=== PATIENT | female | born 1945 | race Caucasian/White ===

== ENCOUNTER 2016-11-04 09:22 | Outpatient (RCR) | payer MEDICARE, OTHER ==
[2015-09-18 06:26] VITALS: BP 117/59
[~2016-11-04 09:22] MED LIST: ACIDOPHILUS PO; ALLEGRA ALLERG180 MG PO; AMBIEN5 M1 PO; CLARITIN10 M1 PO; COUMADIN5 MG PO; CRESTOR 10MG10 MG PO; FUROSEMIDE PO; GABAPENTIN TAB600 MG PO; GLUCOPHAGE XR500 M2 PO; GOOD NEIGHBOR P20 MG PO; HYOSCYAMINE0.125 M7 PO; INSULIN 70/3100 U/ML IJ; IPRATROPIUM BROM3 M1 IH; LEVEMIR SQ; LEVOTHYROXINE0.15 MG PO; LISINOPRIL5 MG PO; LYRICA 50MG CAP50 MG PO; METOCLOPRAMIDE10 M2 PO; MOMETASONE0.05 MG/Ac NS; NOVOLOG 100U100 U/ML SQ; OXYCODONE PO; PANTOPRAZOLE SO40 MG PO; PAXIL20 M1 PO; Patient's Own Medication PO; RT ADVAIR HFA 2312 G IH; RT ALBUTER2.5 MG/0.5 IH; Remove Patch TD; SINEQUAN 1010 MG/CAP PO; SINGULAIR; SLOW-MAG 6464 MG/TAB PO; TRIAMCINOLONE A15 GM TP
== END 2016-11-09 10:21 ==
LOC: OPPGERO 09:22
DX: F32.1 Major depressive disorder, single episode, moderate (principal); F41.1 Generalized anxiety disorder

== ENCOUNTER 2016-11-10 07:26 | Outpatient (RCR) | payer MEDICARE, OTHER ==
[2015-09-18 06:26] VITALS: BP 117/59
== END 2016-12-10 15:02 ==
LOC: OPPGERO 07:26
DX: F32.1 Major depressive disorder, single episode, moderate (principal); F41.1 Generalized anxiety disorder

== ENCOUNTER 2016-12-11 09:00 | Outpatient (RCR) | payer MEDICARE, OTHER ==
[2015-09-18 06:26] VITALS: BP 117/59
== END 2017-01-07 15:27 ==
LOC: OPPGERO 09:00
DX: F32.1 Major depressive disorder, single episode, moderate (principal); F41.1 Generalized anxiety disorder

== ENCOUNTER 2017-01-10 08:12 | Outpatient (RCR) | payer MEDICARE, OTHER ==
[2015-09-18 06:26] VITALS: BP 117/59
== END 2017-02-09 16:48 ==
LOC: OPPGERO 08:12
DX: F32.1 Major depressive disorder, single episode, moderate (principal); F41.1 Generalized anxiety disorder

== ENCOUNTER 2017-02-10 11:08 | Outpatient (RCR) | payer MEDICARE, OTHER ==
[2015-09-18 06:26] VITALS: BP 117/59
== END 2017-03-11 15:45 ==
LOC: OPPGERO 11:08
DX: F32.1 Major depressive disorder, single episode, moderate (principal); F41.1 Generalized anxiety disorder

== ENCOUNTER → 2017-02-28 | Outpatient (CLI) | payer MEDICARE, OTHER ==
[2015-09-18 06:26] VITALS: BP 117/59
== END ==
LOC: LAB 11:57
DX: E11.9 Type 2 diabetes mellitus without complications (principal); E03.4 Atrophy of thyroid (acquired); E78.00 Pure hypercholesterolemia, unspecified

== ENCOUNTER → 2017-03-02 | Outpatient (CLI) | payer MEDICARE, OTHER ==
[2015-09-18 06:26] VITALS: BP 117/59
== END ==
LOC: RAD 08:08
DX: N17.9 Acute kidney failure, unspecified (principal); B17.9 Acute viral hepatitis, unspecified

== ENCOUNTER → 2017-03-07 | Outpatient (CLI) | payer MEDICARE, OTHER ==
[2015-09-18 06:26] VITALS: BP 117/59
== END ==
LOC: LAB 14:07
DX: B17.9 Acute viral hepatitis, unspecified (principal); N17.9 Acute kidney failure, unspecified

== ENCOUNTER 2017-03-14 08:41 | Outpatient (RCR) | payer MEDICARE, OTHER ==
[2015-09-18 06:26] VITALS: BP 117/59
== END 2017-04-11 15:20 ==
LOC: OPPGERO 08:41
DX: F32.1 Major depressive disorder, single episode, moderate (principal); F41.1 Generalized anxiety disorder

== ENCOUNTER → 2017-03-16 | Outpatient (CLI) | payer MEDICARE, OTHER ==
[2015-09-18 06:26] VITALS: BP 117/59
== END ==
LOC: LAB 08:43
DX: B17.9 Acute viral hepatitis, unspecified (principal); N17.9 Acute kidney failure, unspecified

== ENCOUNTER → 2017-03-21 | Outpatient (CLI) | payer MEDICARE, OTHER ==
[2015-09-18 06:26] VITALS: BP 117/59
== END ==
LOC: LAB 11:12
DX: R93.8 Abnormal findings on diagnostic imaging of other specified body structures (principal)

== ENCOUNTER → 2017-06-10 | Outpatient (CLI) | payer MEDICARE, OTHER ==
[2015-09-18 06:26] VITALS: BP 117/59
== END ==
LOC: LAB 11:41
DX: E11.8 Type 2 diabetes mellitus with unspecified complications (principal); E78.00 Pure hypercholesterolemia, unspecified; R20.2 Paresthesia of skin; K90.9 Intestinal malabsorption, unspecified; E03.9 Hypothyroidism, unspecified

== ENCOUNTER → 2017-07-26 | Outpatient (CLI) | payer MEDICARE, OTHER ==
[2015-09-18 06:26] VITALS: BP 117/59
== END ==
LOC: MAMMO 07-25 14:32
DX: Z12.31 Encounter for screening mammogram for malignant neoplasm of breast (principal)
CPT/HCPCS: G0202

== ENCOUNTER → 2017-08-29 | Outpatient (CLI) | payer MEDICARE, OTHER ==
[2015-09-18 06:26] VITALS: BP 117/59
[2017-08-29 14:20] LABS: ALBUMIN 3.2 g/dL (3.5-5.0); BUN/CREATININE RATIO 21.5 (6.0-26.0); CALCIUM 8.9 mg/dL (8.4-10.2); POTASSIUM 4.9 mmol/L (3.6-5.0); TOTAL BILIRUBIN 0.6 mg/dL (0.2-1.3); TOTAL PROTEIN 6.2 g/dL (6.3-8.2)
== END ==
LOC: LAB 13:10
PROVIDERS: Internal Medicine
DX: E11.9 Type 2 diabetes mellitus without complications (principal); E03.4 Atrophy of thyroid (acquired); K90.89 Other intestinal malabsorption; G63 Polyneuropathy in diseases classified elsewhere; E53.8 Deficiency of other specified B group vitamins

== ENCOUNTER → 2017-10-31 | Outpatient (CLI) | payer MEDICARE, OTHER ==
[2015-09-18 06:26] VITALS: BP 117/59
[2017-10-31 14:24] LABS: ALBUMIN 3.6 g/dL (3.5-5.0); BUN/CREATININE RATIO 25.7 (6.0-26.0); CALCIUM 8.7 mg/dL (8.4-10.2); POTASSIUM 4.2 mmol/L (3.6-5.0); TOTAL BILIRUBIN 0.3 mg/dL (0.2-1.3); TOTAL PROTEIN 7.1 g/dL (6.3-8.2)
== END ==
LOC: LAB 13:46
PROVIDERS: Internal Medicine
DX: E03.9 Hypothyroidism, unspecified (principal); E11.9 Type 2 diabetes mellitus without complications; K90.89 Other intestinal malabsorption; R20.2 Paresthesia of skin; Z88.0 Allergy status to penicillin; Z91.041 Radiographic dye allergy status

== ENCOUNTER → 2017-12-26 | Outpatient (CLI) | payer MEDICARE, OTHER ==
[2015-09-18 06:26] VITALS: BP 117/59
== END ==
LOC: LAB 12:52
DX: E03.9 Hypothyroidism, unspecified (principal); Z88.0 Allergy status to penicillin; Z91.041 Radiographic dye allergy status

== ENCOUNTER → 2018-01-09 | Outpatient (CLI) | payer MEDICARE, OTHER ==
[2015-09-18 06:26] VITALS: BP 117/59
[2018-01-09 14:28] LABS: EOS # 0.1 (0.04-0.40); EOS % 0.7 % (1.0-5.0); HEMATOCRIT 39.6 % (37.0-47.0); HEMOGLOBIN 12.7 g/dL (12.5-16.0); MEAN CELL VOLUME 84 fl (78-100); MEAN CORPUSCULAR HEMOGLOBIN 27 pg (27-31); MEAN CORPUSCULAR HGB CONC 32 g/dL (33-37); MEAN PLATELET VOLUME 11.8 fl (7.4-10.4); MONO # 0.6 (0.20-0.80); PLATELET COUNT 292 K/mm3 (130-400); RED BLOOD COUNT 4.73 M/mm3 (4.10-5.30); RED CELL DISTRIBUTION WIDTH 12.8 % (11.5-14.5); WHITE BLOOD COUNT 10.7 K/mm3 (4.8-10.8)
[2018-01-09 14:43] LABS: ALBUMIN 3.3 g/dL (3.5-5.0); BUN/CREATININE RATIO 20.2 (6.0-26.0); CALCIUM 8.6 mg/dL (8.4-10.2); POTASSIUM 4.4 mmol/L (3.6-5.0); TOTAL BILIRUBIN 0.2 mg/dL (0.2-1.3); TOTAL PROTEIN 7.1 g/dL (6.3-8.2)
[2018-01-09 16:09] LABS: ERYTHROCYTE SEDIMENTATION RATE 39 mm/hr (0-30)
[2018-01-09 21:20] LABS: URINE APPEARANCE HAZY; URINE BILIRUBIN NEGATIVE (NEGATIVE); URINE BLOOD NEGATIVE (NEGATIVE); URINE COLOR YELLOW; URINE KETONE NEGATIVE (NEGATIVE); URINE LEUKOCYTE ESTERASE NEGATIVE (NEGATIVE); URINE NITRATE NEGATIVE (NEGATIVE); URINE PROTEIN(semi-quant) TRACE mg/dL (NEGATIVE); URINE UROBILINOGEN NORMAL (NORMAL)
== END ==
LOC: LAB 14:11
PROVIDERS: Internal Medicine
DX: E11.9 Type 2 diabetes mellitus without complications (principal); K90.89 Other intestinal malabsorption; Z12.11 Encounter for screening for malignant neoplasm of colon; E53.8 Deficiency of other specified B group vitamins; G63 Polyneuropathy in diseases classified elsewhere; Z88.0 Allergy status to penicillin; Z91.041 Radiographic dye allergy status

== ENCOUNTER → 2018-03-23 | Outpatient (CLI) | payer MEDICARE, OTHER ==
[2015-09-18 06:26] VITALS: BP 117/59
== END ==
LOC: LAB 14:50
DX: E03.4 Atrophy of thyroid (acquired) (principal); G63 Polyneuropathy in diseases classified elsewhere

== ENCOUNTER → 2018-06-12 | Outpatient (CLI) | payer MEDICARE, OTHER ==
[2015-09-18 06:26] VITALS: BP 117/59
[2018-06-12 14:39] LABS: EOS # 0.2 (0.04-0.40); HEMOGLOBIN 12.9 g/dL (12.5-16.0); LYMPH# 2.3 (1.50-4.00); MEAN CELL VOLUME 85 fl (78-100); MEAN CORPUSCULAR HEMOGLOBIN 27 pg (27-31); MEAN CORPUSCULAR HGB CONC 32 g/dL (33-37); MEAN PLATELET VOLUME 11.1 fl (7.4-10.4); MONO # 0.6 (0.20-0.80); NEU # 5.3 (1.40-6.50); PLATELET COUNT 356 K/mm3 (130-400); RED BLOOD COUNT 4.83 M/mm3 (4.10-5.30); RED CELL DISTRIBUTION WIDTH 13.4 % (11.5-14.5); WHITE BLOOD COUNT 8.4 K/mm3 (4.8-10.8)
[2018-06-12 14:40] LABS: ALBUMIN 3.6 g/dL (3.5-5.0); CALCIUM 8.8 mg/dL (8.4-10.2); ERYTHROCYTE SEDIMENTATION RATE 32 mm/hr (0-30); POTASSIUM 4.3 mmol/L (3.6-5.0); TOTAL BILIRUBIN 0.5 mg/dL (0.2-1.3); TOTAL PROTEIN 7.2 g/dL (6.3-8.2)
== END ==
LOC: LAB 11:18
PROVIDERS: Internal Medicine
DX: E11.9 Type 2 diabetes mellitus without complications (principal); E03.9 Hypothyroidism, unspecified; G62.9 Polyneuropathy, unspecified; K90.9 Intestinal malabsorption, unspecified

== ENCOUNTER → 2018-07-24 | Outpatient (CLI) | payer MEDICARE, OTHER ==
[2015-09-18 06:26] VITALS: BP 117/59
== END ==
LOC: LAB 12:42
DX: E03.9 Hypothyroidism, unspecified (principal)

== ENCOUNTER → 2018-08-22 | Outpatient (CLI) | payer MEDICARE, OTHER ==
[2015-09-18 06:26] VITALS: BP 117/59
== END ==
LOC: LAB 12:45 → MSO 12:45
DX: Z12.31 Encounter for screening mammogram for malignant neoplasm of breast (principal)

== ENCOUNTER → 2018-08-22 | Outpatient (CLI) | payer MEDICARE, OTHER ==
[2015-09-18 06:26] VITALS: BP 117/59
== END ==
LOC: MAMMO 12:58
DX: Z12.31 Encounter for screening mammogram for malignant neoplasm of breast (principal)

== ENCOUNTER → 2018-09-14 | Outpatient (CLI) | payer MEDICARE, OTHER ==
[2015-09-18 06:26] VITALS: BP 117/59
[2018-09-14 16:02] LABS: EOS # 0.2 (0.04-0.40); EOS % 1.2 % (1.0-5.0); HEMATOCRIT 42.6 % (37.0-47.0); HEMOGLOBIN 13.5 g/dL (12.5-16.0); LYMPH# 3.5 (1.50-4.00); MEAN CELL VOLUME 85 fl (78-100); MEAN CORPUSCULAR HEMOGLOBIN 27 pg (27-31); MEAN CORPUSCULAR HGB CONC 32 g/dL (33-37); MEAN PLATELET VOLUME 10.8 fl (7.4-10.4); PLATELET COUNT 257 K/mm3 (130-400); RED BLOOD COUNT 4.99 M/mm3 (4.10-5.30); RED CELL DISTRIBUTION WIDTH 13.2 % (11.5-14.5); WHITE BLOOD COUNT 14.8 K/mm3 (4.8-10.8)
[2018-09-14 16:03] LABS: NEU # 10.1 (1.40-6.50)
[2018-09-14 16:08] LABS: ALBUMIN 3.5 g/dL (3.5-5.0); TOTAL BILIRUBIN 0.3 mg/dL (0.2-1.3); TOTAL PROTEIN 6.9 g/dL (6.3-8.2)
== END ==
LOC: LAB 15:42
PROVIDERS: Internal Medicine
DX: E11.42 Type 2 diabetes mellitus with diabetic polyneuropathy (principal); E03.9 Hypothyroidism, unspecified; K90.9 Intestinal malabsorption, unspecified

== ENCOUNTER → 2018-12-14 | Outpatient (CLI) | payer MEDICARE, OTHER ==
[2015-09-18 06:26] VITALS: BP 117/59
[2018-12-14 14:29] LABS: ALBUMIN 3.6 g/dL (3.5-5.0); CALCIUM 8.8 mg/dL (8.4-10.2); POTASSIUM 4.4 mmol/L (3.6-5.0); TOTAL BILIRUBIN 0.3 mg/dL (0.2-1.3); TOTAL PROTEIN 7.2 g/dL (6.3-8.2)
[2018-12-14 14:32] LABS: EOS % 0.2 % (1.0-5.0); HEMATOCRIT 40.4 % (37.0-47.0); HEMOGLOBIN 12.7 g/dL (12.5-16.0); LYMPH# 2.5 (1.50-4.00); MEAN CELL VOLUME 84 fl (78-100); MEAN CORPUSCULAR HEMOGLOBIN 27 pg (27-31); MEAN CORPUSCULAR HGB CONC 31 g/dL (33-37); MONO # 0.7 (0.20-0.80); NEU # 6.9 (1.40-6.50); PLATELET COUNT 335 K/mm3 (130-400); RED BLOOD COUNT 4.79 M/mm3 (4.10-5.30); RED CELL DISTRIBUTION WIDTH 12.7 % (11.5-14.5); WHITE BLOOD COUNT 10.2 K/mm3 (4.8-10.8)
[2018-12-14 16:11] LABS: ERYTHROCYTE SEDIMENTATION RATE 3 mm/hr (0-30)
== END ==
LOC: LAB 14:06
PROVIDERS: Internal Medicine
DX: K90.9 Intestinal malabsorption, unspecified (principal); E53.8 Deficiency of other specified B group vitamins; E03.9 Hypothyroidism, unspecified; E11.9 Type 2 diabetes mellitus without complications

== ENCOUNTER → 2019-03-01 | Outpatient (CLI) | payer MEDICARE, OTHER ==
[2015-09-18 06:26] VITALS: BP 117/59
== END ==
LOC: RAD 15:38
DX: M79.604 Pain in right leg (principal); M25.561 Pain in right knee; M25.551 Pain in right hip; M79.651 Pain in right thigh; Z87.81 Personal history of (healed) traumatic fracture

== ENCOUNTER 2019-03-08 19:36 | Emergency (ER) | payer MEDICARE, OTHER ==
[~2019-03-08] VITALS: Ht 154.9 cm; Wt 91.8 kg
[~2019-03-08 19:36] MED LIST changes: -AMBIEN10 MG PO; -CRESTOR40 MG PO; -CYANOCOBAL1000 MCG/2 IM; -ERGOCALCIFER50000 IU PO; -FEXOFENADINE H180 M1 PO; -FLUTICASONE-SA1 EAC4 IH; -HUMALOG KWIKPEN SQ; -KLONOPIN 0.5MG0.5 MG PO; -LASIX20 M1 PO; -LOTRISONE CREAM15 G1 TP; -MIRAPEX0.5 MG PO; -NEURONTIN600 M1 PO; -PROAIR HFA0.09 MG/AC IH; -PROZAC20 M1 PO; -SYNTHROID0.15 MG PO; -ZESTRIL5 M1 PO
[2019-03-08] MEDS ORDERED: AMBIEN10 MG PO (20:19)
[2019-03-08] MEDS ORDERED: KLONOPIN 0.5MG0.5 MG PO (20:21)
[2019-03-08] MEDS ORDERED: CYANOCOBAL1000 MCG/2 IM (20:22)
[2019-03-08] MEDS ORDERED: ERGOCALCIFER50000 IU PO (20:23)
[2019-03-08] MEDS ORDERED: FEXOFENADINE H180 M1 PO (20:24)
[2019-03-08 20:25] LABS: EOS % 0.3 % (1.0-5.0); HEMATOCRIT 39.9 % (37.0-47.0); HEMOGLOBIN 12.9 g/dL (12.5-16.0); LYMPH# 2.1 (1.50-4.00); MEAN CELL VOLUME 84 fl (78-100); MEAN CORPUSCULAR HEMOGLOBIN 27 pg (27-31); MEAN CORPUSCULAR HGB CONC 32 g/dL (33-37); MEAN PLATELET VOLUME 11.7 fl (7.4-10.4); MONO # 0.6 (0.20-0.80); PLATELET COUNT 386 K/mm3 (130-400); RED BLOOD COUNT 4.78 M/mm3 (4.10-5.30); RED CELL DISTRIBUTION WIDTH 13.2 % (11.5-14.5); WHITE BLOOD COUNT 13.1 K/mm3 (4.8-10.8)
[2019-03-08 20:26] LABS: NEU # 10.3 (1.40-6.50)
[2019-03-08] MEDS ORDERED: NEURONTIN600 M1 PO (20:27)
[2019-03-08] MEDS ORDERED: LASIX20 M1 PO (20:27)
[2019-03-08] MEDS ORDERED: PROZAC20 M1 PO (20:27)
[2019-03-08 20:30] LABS: ALBUMIN 3.4 g/dL (3.4-4.8)
[2019-03-08 20:31] LABS: POTASSIUM 4.8 mmol/L (3.5-5.1)
[2019-03-08 20:32] LABS: CALCIUM 9.1 mg/dL (8.3-10.5)
[2019-03-08 20:33] LABS: TOTAL PROTEIN 7.3 g/dL (6.2-8.1)
[2019-03-08 20:35] LABS: TOTAL BILIRUBIN 0.4 mg/dL (0.2-1.2)
[2019-03-08 20:46] LABS: TROPONIN-I 0.04 ng/mL (<0.030)
[2019-03-08] MEDS ORDERED: HUMALOG KWIKPEN SQ (20:47)
[2019-03-08] MEDS ORDERED: LOTRISONE CREAM15 G1 TP (21:01)
[2019-03-08] MEDS ORDERED: MIRAPEX0.5 MG PO (21:02)
[2019-03-08] MEDS ORDERED: CRESTOR40 MG PO (21:03)
[2019-03-08] MEDS ORDERED: PROAIR HFA0.09 MG/AC IH (21:03)
[2019-03-08] MEDS ORDERED: SYNTHROID0.15 MG PO (21:05)
[2019-03-08] MEDS ORDERED: FLUTICASONE-SA1 EAC4 IH (21:06)
[2019-03-08 21:10] LABS: URINE APPEARANCE HAZY; URINE COLOR YELLOW; URINE PROTEIN(semi-quant) 1+ mg/dL (NEGATIVE)
[2019-03-08 21:11] LABS: URINE BILIRUBIN NEGATIVE (NEGATIVE); URINE BLOOD TRACE (NEGATIVE); URINE KETONE 1+ (NEGATIVE); URINE LEUKOCYTE ESTERASE 1+ (NEGATIVE); URINE NITRATE NEGATIVE (NEGATIVE); URINE UROBILINOGEN NORMAL (NORMAL); URINE WBC 16-30 /hpf (0-3)
[2019-03-08 21:12] LABS: URINE MUCUS PRESENT (NOT PRESENT)
[2019-03-08] MEDS ORDERED: ZESTRIL5 M1 PO (21:42)
[2019-03-08 23:43] LABS: POTASSIUM 4.1 mmol/L (3.5-5.1)
[2019-03-08 23:45] VITALS: BP 190/95
[2019-03-08 23:45] LABS: CALCIUM 8.5 mg/dL (8.3-10.5)
== END 2019-03-08 23:45 | disposition short-term general hospital (02) ==
LOC: ED 19:36
PROVIDERS: Nurse Practitioner Family
DX: E11.65 Type 2 diabetes mellitus with hyperglycemia (principal); E87.1 Hypo-osmolality and hyponatremia; E86.0 Dehydration; R41.0 Disorientation, unspecified; N28.9 Disorder of kidney and ureter, unspecified; I10 Essential (primary) hypertension; J44.9 Chronic obstructive pulmonary disease, unspecified; K21.9 Gastro-esophageal reflux disease without esophagitis; E11.42 Type 2 diabetes mellitus with diabetic polyneuropathy; E78.5 Hyperlipidemia, unspecified; E03.9 Hypothyroidism, unspecified; F32.9 Major depressive disorder, single episode, unspecified; E11.43 Type 2 diabetes mellitus with diabetic autonomic (poly)neuropathy; K31.84 Gastroparesis; G47.33 Obstructive sleep apnea (adult) (pediatric); Z90.49 Acquired absence of other specified parts of digestive tract; Z90.710 Acquired absence of both cervix and uterus; Z98.890 Other specified postprocedural states
CPT/HCPCS: J0744; J1815; J7030

== ENCOUNTER → 2019-03-08 | Outpatient (CLI) | payer MEDICARE, OTHER ==
[2015-09-18 06:26] VITALS: BP 117/59
[~2019-03-08] MED LIST changes: +AMBIEN10 MG PO; +CRESTOR40 MG PO; +CYANOCOBAL1000 MCG/2 IM; +ERGOCALCIFER50000 IU PO; +FEXOFENADINE H180 M1 PO; +FLUTICASONE-SA1 EAC4 IH; +HUMALOG KWIKPEN SQ; +KLONOPIN 0.5MG0.5 MG PO; +LASIX20 M1 PO; -LEVEMIR SQ; +LEVEMIR100 U/M1 SQ; +LOTRISONE CREAM15 G1 TP; +MIRAPEX0.5 MG PO; +NEURONTIN600 M1 PO; +PROAIR HFA0.09 MG/AC IH; +PROZAC20 M1 PO; -SINGULAIR; +SINGULAIR PO; +SYNTHROID0.15 MG PO; +ZESTRIL5 M1 PO
== END ==
LOC: RAD 13:30
DX: M16.11 Unilateral primary osteoarthritis, right hip (principal)

== ENCOUNTER 2019-04-10 17:07 | Emergency (ER) | payer MEDICARE, OTHER ==
[~2019-04-10] VITALS: Ht 154.9 cm; Wt 90.4 kg
[~2019-04-10 17:07] MED LIST changes: +AMBIEN10 MG PO; +CRESTOR40 MG PO; +CYANOCOBAL1000 MCG/2 IM; +ERGOCALCIFER50000 IU PO; +FEXOFENADINE H180 M1 PO; +FLUTICASONE-SA1 EAC4 IH; +KLONOPIN 0.5MG0.5 MG PO; +LASIX20 M1 PO; +LOTRISONE CREAM15 G1 TP; +MIRAPEX0.5 MG PO; +NEURONTIN600 M1 PO; +PROAIR HFA0.09 MG/AC IH; +PROZAC20 M1 PO; +SYNTHROID0.15 MG PO; +ZESTRIL5 M1 PO
[2019-04-10 18:09] LABS: EOS # 0.1 (0.04-0.40); EOS % 0.6 % (1.0-5.0); HEMATOCRIT 34.8 % (37.0-47.0); HEMOGLOBIN 11.3 g/dL (12.5-16.0); LYMPH# 2.3 (1.50-4.00); MEAN CELL VOLUME 86 fl (78-100); MEAN CORPUSCULAR HEMOGLOBIN 28 pg (27-31); MEAN CORPUSCULAR HGB CONC 33 g/dL (33-37); MEAN PLATELET VOLUME 10.5 fl (7.4-10.4); MONO # 0.7 (0.20-0.80); NEU # 6.9 (1.40-6.50); PLATELET COUNT 351 K/mm3 (130-400); RED BLOOD COUNT 4.07 M/mm3 (4.10-5.30); RED CELL DISTRIBUTION WIDTH 12.4 % (11.5-14.5); WHITE BLOOD COUNT 10.1 K/mm3 (4.8-10.8)
[2019-04-10 18:14] LABS: ALBUMIN 3.3 g/dL (3.4-4.8); POTASSIUM 3.8 mmol/L (3.5-5.1)
[2019-04-10 18:16] LABS: CALCIUM 8.9 mg/dL (8.3-10.5)
[2019-04-10 18:17] LABS: TOTAL PROTEIN 6.3 g/dL (6.2-8.1)
[2019-04-10 18:19] LABS: TOTAL BILIRUBIN 0.2 mg/dL (0.2-1.2)
[2019-04-10] MEDS ORDERED: VICTOZA 3-0.6 MG/0.1 SQ (19:28)
[2019-04-10] MEDS ORDERED: HYGROTON 2525 MG/TAB PO (19:31)
[2019-04-10] MEDS ORDERED: ASPIRIN ADULT L81 M3 PO (19:32)
[2019-04-10] MEDS ORDERED: MAGNESIUM CHLOR64 MG PO (19:33)
[2019-04-10] MEDS ORDERED: PEPCID 20MG TAB20 MG PO (19:34)
[2019-04-10] MEDS ORDERED: METOCLOPRAMIDE H5 M1 PO (19:35)
[2019-04-10] MEDS ORDERED: CARVEDILOL25 MG PO (19:36)
[2019-04-10] MEDS ORDERED: ATROVENT I0.2 MG/1 M IH (19:37)
[2019-04-10] MEDS ORDERED: PROAIR HFA0.09 MG/AC IH (19:39)
[2019-04-10 20:04] LABS: URINE COLOR YELLOW
[2019-04-10 20:05] LABS: URINE APPEARANCE HAZY; URINE BILIRUBIN NEGATIVE (NEGATIVE); URINE BLOOD NEGATIVE (NEGATIVE); URINE GLUCOSE NEGATIVE (NEGATIVE); URINE KETONE NEGATIVE (NEGATIVE); URINE LEUKOCYTE ESTERASE NEGATIVE (NEGATIVE); URINE NITRATE NEGATIVE (NEGATIVE); URINE PROTEIN(semi-quant) 1+ mg/dL (NEGATIVE); URINE UROBILINOGEN NORMAL (NORMAL)
[2019-04-10] MEDS ORDERED: CYCLOBENZ5 MG PO (20:36)
[2019-04-10 20:50] VITALS: BP 152/68
== END 2019-04-10 20:50 | disposition home or self-care (01) ==
LOC: ED 17:07
PROVIDERS: Nurse Practitioner Family
DX: M54.2 Cervicalgia (principal); S80.211A Abrasion, right knee, initial encounter; I10 Essential (primary) hypertension; E11.9 Type 2 diabetes mellitus without complications; J44.9 Chronic obstructive pulmonary disease, unspecified; G47.33 Obstructive sleep apnea (adult) (pediatric); E11.42 Type 2 diabetes mellitus with diabetic polyneuropathy; E11.43 Type 2 diabetes mellitus with diabetic autonomic (poly)neuropathy; K31.84 Gastroparesis; Z79.4 Long term (current) use of insulin; Z79.82 Long term (current) use of aspirin; W18.30XA Fall on same level, unspecified, initial encounter; Y92.000 Kitchen of unspecified non-institutional (private) residence as the place of occurrence of the external cause

== ENCOUNTER 2019-04-27 09:24 | Emergency (ER) | payer MEDICARE, OTHER ==
[~2019-04-27] VITALS: Ht 154.9 cm; Wt 89.5 kg
[~2019-04-27 09:24] MED LIST changes: +ASPIRIN ADULT L81 M3 PO; +ATROVENT I0.2 MG/1 M IH; +CARVEDILOL25 MG PO; +CYCLOBENZ5 MG PO; +HYGROTON 2525 MG/TAB PO; +MAGNESIUM CHLOR64 MG PO; +METOCLOPRAMIDE H5 M1 PO; +PEPCID 20MG TAB20 MG PO; +VICTOZA 3-0.6 MG/0.1 SQ
[2019-04-27 10:06] LABS: EOS # 0.1 (0.04-0.40); EOS % 0.9 % (1.0-5.0); HEMATOCRIT 35.7 % (37.0-47.0); HEMOGLOBIN 11.5 g/dL (12.5-16.0); LYMPH# 1.3 (1.50-4.00); MEAN CELL VOLUME 86 fl (78-100); MEAN CORPUSCULAR HEMOGLOBIN 28 pg (27-31); MEAN CORPUSCULAR HGB CONC 32 g/dL (33-37); MEAN PLATELET VOLUME 10.5 fl (7.4-10.4); MONO # 0.6 (0.20-0.80); PLATELET COUNT 416 K/mm3 (130-400); RED BLOOD COUNT 4.17 M/mm3 (4.10-5.30); RED CELL DISTRIBUTION WIDTH 12.2 % (11.5-14.5)
[2019-04-27 10:13] LABS: ALBUMIN 3.4 g/dL (3.4-4.8)
[2019-04-27 10:14] LABS: CALCIUM 8.5 mg/dL (8.3-10.5)
[2019-04-27 10:15] LABS: TOTAL PROTEIN 7.1 g/dL (6.2-8.1)
[2019-04-27 10:17] LABS: TOTAL BILIRUBIN 0.4 mg/dL (0.2-1.2)
[2019-04-27 10:30] LABS: URINE APPEARANCE HAZY; URINE COLOR YELLOW
[2019-04-27 10:31] LABS: URINE BILIRUBIN NEGATIVE (NEGATIVE); URINE BLOOD NEGATIVE (NEGATIVE); URINE GLUCOSE 50 mg/dL mg/dL (NEGATIVE); URINE KETONE NEGATIVE (NEGATIVE); URINE LEUKOCYTE ESTERASE NEGATIVE (NEGATIVE); URINE NITRATE NEGATIVE (NEGATIVE); URINE PROTEIN(semi-quant) TRACE mg/dL (NEGATIVE); URINE UROBILINOGEN NORMAL (NORMAL); URINE WBC 0-1 /hpf (0-3)
[2019-04-27] MEDS ORDERED: NORCO 325 MG-51 TA1 PO (11:44)
[2019-04-27 12:22] VITALS: BP 155/70
== END 2019-04-27 13:01 | disposition home or self-care (01) ==
LOC: ED 09:24
PROVIDERS: Nurse Practitioner Primary Care
DX: S20.211A Contusion of right front wall of thorax, initial encounter (principal); S93.401A Sprain of unspecified ligament of right ankle, initial encounter; S93.601A Unspecified sprain of right foot, initial encounter; E11.9 Type 2 diabetes mellitus without complications; I10 Essential (primary) hypertension; Z79.4 Long term (current) use of insulin; Z79.51 Long term (current) use of inhaled steroids; Z79.82 Long term (current) use of aspirin; W19.XXXA Unspecified fall, initial encounter; Y92.009 Unspecified place in unspecified non-institutional (private) residence as the place of occurrence of the external cause
CPT/HCPCS: L4386

== ENCOUNTER 2019-04-29 23:50 | Emergency (ER) | payer MEDICARE, OTHER ==
[~2019-04-29] VITALS: Wt 94.1 kg
[~2019-04-29 23:50] MED LIST changes: +NORCO 325 MG-51 TA1 PO
[2019-04-30 02:15] VITALS: BP 119/57
== END 2019-04-30 02:15 | disposition home or self-care (01) ==
LOC: ED 23:50
DX: S09.90XA Unspecified injury of head, initial encounter (principal); I10 Essential (primary) hypertension; E11.9 Type 2 diabetes mellitus without complications; W18.2XXA Fall in (into) shower or empty bathtub, initial encounter; Y93.E1 Activity, personal bathing and showering; Y92.002 Bathroom of unspecified non-institutional (private) residence as the place of occurrence of the external cause
CPT/HCPCS: J1885

== ENCOUNTER → 2019-06-07 | Outpatient (CLI) | payer MEDICARE, OTHER | LOC: RAD 16:00 | DX: M51.17 Intervertebral disc disorders with radiculopathy, lumbosacral region (principal); M48.061 Spinal stenosis, lumbar region without neurogenic claudication ==

== ENCOUNTER → 2019-07-20 | Outpatient (CLI) | payer MEDICARE, OTHER | LOC: LAB 16:08 | DX: E11.9 Type 2 diabetes mellitus without complications (principal) ==

== ENCOUNTER → 2020-02-20 | Outpatient (CLI) | payer MEDICARE, OTHER ==
[2020-02-20 07:47] LABS: HEMATOCRIT 37.2 % (37.0-47.0); HEMOGLOBIN 11.5 g/dL (12.5-16.0); LYMPH# 2.3 (1.50-4.00); MEAN CELL VOLUME 87 fl (78-100); MEAN CORPUSCULAR HEMOGLOBIN 27 pg (27-31); MEAN CORPUSCULAR HGB CONC 31 g/dL (33-37); MONO # 0.5 (0.20-0.80); NEU # 5.6 (1.40-6.50); PLATELET COUNT 293 K/mm3 (130-400); RED BLOOD COUNT 4.26 M/mm3 (4.10-5.30); RED CELL DISTRIBUTION WIDTH 12.6 % (11.5-14.5); WHITE BLOOD COUNT 8.4 K/mm3 (4.8-10.8)
[2020-02-20 07:55] LABS: ALBUMIN 3.5 g/dL (3.4-4.8); POTASSIUM 4.6 mmol/L (3.5-5.1)
[2020-02-20 07:56] LABS: CALCIUM 8.5 mg/dL (8.3-10.5)
[2020-02-20 07:58] LABS: TOTAL PROTEIN 6.4 g/dL (6.2-8.1)
[2020-02-20 07:59] LABS: TOTAL BILIRUBIN 0.3 mg/dL (0.2-1.2)
== END ==
LOC: LAB 07:34
PROVIDERS: Internal Medicine
DX: E11.9 Type 2 diabetes mellitus without complications (principal); K90.89 Other intestinal malabsorption; E53.8 Deficiency of other specified B group vitamins

== ENCOUNTER → 2020-03-11 | Outpatient (CLI) | payer MEDICARE, OTHER | LOC: LAB 16:34 | DX: E03.9 Hypothyroidism, unspecified (principal) ==

== ENCOUNTER → 2020-05-22 | Outpatient (CLI) | payer MEDICARE, OTHER ==
[2020-05-22 12:11] LABS: HEMATOCRIT 36.8 % (37.0-47.0); HEMOGLOBIN 11.2 g/dL (12.5-16.0); LYMPH# 1.5 (1.50-4.00); MEAN CELL VOLUME 86 fl (78-100); MEAN CORPUSCULAR HEMOGLOBIN 26 pg (27-31); MEAN CORPUSCULAR HGB CONC 30 g/dL (33-37); MONO # 0.4 (0.20-0.80); NEU # 5.2 (1.40-6.50); PLATELET COUNT 315 K/mm3 (130-400); RED BLOOD COUNT 4.28 M/mm3 (4.10-5.30); RED CELL DISTRIBUTION WIDTH 12.3 % (11.5-14.5); WHITE BLOOD COUNT 7.1 K/mm3 (4.8-10.8)
[2020-05-22 12:19] LABS: ALBUMIN 3.4 g/dL (3.4-4.8); POTASSIUM 4.3 mmol/L (3.5-5.1)
[2020-05-22 12:20] LABS: CALCIUM 8.2 mg/dL (8.3-10.5)
[2020-05-22 12:21] LABS: TOTAL PROTEIN 6.8 g/dL (6.2-8.1)
[2020-05-22 12:23] LABS: TOTAL BILIRUBIN 0.2 mg/dL (0.2-1.2)
== END ==
LOC: RAD 11:59
PROVIDERS: Internal Medicine
DX: E11.51 Type 2 diabetes mellitus with diabetic peripheral angiopathy without gangrene (principal)

== ENCOUNTER → 2020-07-22 | Outpatient (CLI) | payer MEDICARE, OTHER ==
[~2020-07-22] MED LIST changes: +ACETAMINOPHEN325 M1 PO; -ASPIRIN ADULT L81 M3 PO; +ASPIRIN E.C. 8181 MG PO; +CEFDINIR300 MG PO; +COREG 3.123.125 MG/T PO; +HUMALOG KWIKPEN SQ; +PRAMIPEXOLE DI0.5 MG PO; +VITAMIN C500 M6 PO; +VITAMIN D21250 MCG PO; +ZITHROMAX 250M250 MG PO
== END ==
LOC: LAB 08:21
DX: R05 Cough (principal); R06.02 Shortness of breath; R53.83 Other fatigue; R19.7 Diarrhea, unspecified; R43.8 Other disturbances of smell and taste; Z20.828 Contact with and (suspected) exposure to other viral communicable diseases

== ENCOUNTER → 2020-08-01 | Outpatient (CLI) | payer MEDICARE, OTHER ==
[2020-07-22 19:03] VITALS: BP 205/100
[~2020-08-01] MED LIST changes: +ALDACTONE 25MG25 MG PO; +PROCARDIA XL30 M1 PO
== END ==
LOC: RAD 07:29
DX: M79.89 Other specified soft tissue disorders (principal)

== ENCOUNTER 2020-08-04 15:52 | Emergency (ER) | payer MEDICARE, OTHER ==
[~2020-08-04 15:52] MED LIST changes: -ALDACTONE 25MG25 MG PO; -PROCARDIA XL30 M1 PO
[2020-08-04 16:56] LABS: HEMATOCRIT 34.3 % (37.0-47.0); HEMOGLOBIN 10.4 g/dL (12.5-16.0); LYMPH# 1.6 (1.50-4.00); MEAN CELL VOLUME 84 fl (78-100); MEAN CORPUSCULAR HEMOGLOBIN 26 pg (27-31); MEAN CORPUSCULAR HGB CONC 30 g/dL (33-37); MEAN PLATELET VOLUME 11.8 fl (7.4-10.4); MONO # 0.8 (0.20-0.80); PLATELET COUNT 321 K/mm3 (130-400); RED BLOOD COUNT 4.08 M/mm3 (4.10-5.30); RED CELL DISTRIBUTION WIDTH 13.2 % (11.5-14.5); WHITE BLOOD COUNT 11.9 K/mm3 (4.8-10.8)
[2020-08-04 16:57] LABS: NEU # 9.5 (1.40-6.50)
[2020-08-04 17:14] LABS: POTASSIUM 5.3 mmol/L (3.5-5.1); SODIUM 138 mmol/L (136-145)
[2020-08-04 17:15] LABS: ALBUMIN 3.6 g/dL (3.4-4.8)
[2020-08-04 17:16] LABS: CALCIUM 8.6 mg/dL (8.3-10.5)
[2020-08-04 17:17] LABS: TOTAL PROTEIN 7.3 g/dL (6.2-8.1)
[2020-08-04 17:18] LABS: CARBON DIOXIDE 23 mmol/L (23-31); D-DIMER 1.09 mg/L FEU (0.15-0.50); GLUCOSE 152 mg/dL (65-105)
[2020-08-04 17:19] LABS: TOTAL BILIRUBIN 0.3 mg/dL (0.2-1.2)
[2020-08-04 17:22] LABS: AST-SGOT 18 U/L (5-34)
[2020-08-04 17:25] LABS: ALT/SGPT 29 U/L (0-55)
[2020-08-04 17:31] LABS: TROPONIN-I < 0.03 ng/mL (<0.030)
[2020-08-04 17:39] LABS: URINE APPEARANCE CLEAR; URINE BILIRUBIN NEGATIVE (NEGATIVE); URINE BLOOD TRACE (NEGATIVE); URINE COLOR YELLOW; URINE GLUCOSE NEGATIVE (NEGATIVE); URINE KETONE NEGATIVE (NEGATIVE); URINE LEUKOCYTE ESTERASE NEGATIVE (NEGATIVE); URINE NITRATE NEGATIVE (NEGATIVE); URINE PROTEIN(semi-quant) 2+ mg/dL (NEGATIVE); URINE UROBILINOGEN NORMAL (NORMAL)
[2020-08-04 17:40] LABS: URINE MUCUS PRESENT (NOT PRESENT)
[2020-08-04] MEDS ORDERED: PROCARDIA XL30 M1 PO (18:10)
[2020-08-04] MEDS ORDERED: ALDACTONE 25MG25 MG PO (18:10)
[2020-08-04 19:33] VITALS: BP 145/100
== END 2020-08-04 19:30 | disposition short-term general hospital (02) ==
LOC: ED 15:52
PROVIDERS: Physician Assistant
DX: R06.03 Acute respiratory distress (principal); R60.0 Localized edema; J44.9 Chronic obstructive pulmonary disease, unspecified; E11.9 Type 2 diabetes mellitus without complications; Z20.828 Contact with and (suspected) exposure to other viral communicable diseases; Z88.0 Allergy status to penicillin; Z91.041 Radiographic dye allergy status; Z79.82 Long term (current) use of aspirin; Z79.4 Long term (current) use of insulin
CPT/HCPCS: J1940; J2930

== ENCOUNTER → 2020-08-13 | Outpatient (CLI) | payer MEDICARE, OTHER ==
[2020-08-04 19:33] VITALS: BP 145/100
[~2020-08-13] MED LIST changes: +ALDACTONE 25MG25 MG PO; +PROCARDIA XL30 M1 PO
== END ==
LOC: RAD 08:06
DX: R07.9 Chest pain, unspecified (principal); R06.02 Shortness of breath; R07.81 Pleurodynia; Z98.1 Arthrodesis status

== ENCOUNTER → 2020-08-15 | Outpatient (CLI) | payer MEDICARE, OTHER ==
[2020-08-04 19:33] VITALS: BP 145/100
[2020-08-15 09:50] LABS: HEMATOCRIT 36.6 % (37.0-47.0); MEAN CELL VOLUME 85 fl (78-100); MEAN CORPUSCULAR HEMOGLOBIN 26 pg (27-31); MEAN CORPUSCULAR HGB CONC 30 g/dL (33-37); PLATELET COUNT 304 K/mm3 (130-400); RED BLOOD COUNT 4.31 M/mm3 (4.10-5.30); RED CELL DISTRIBUTION WIDTH 13.3 % (11.5-14.5); WHITE BLOOD COUNT 9.7 K/mm3 (4.8-10.8)
[2020-08-15 10:01] LABS: ALBUMIN 3.6 g/dL (3.4-4.8); POTASSIUM 4.6 mmol/L (3.5-5.1)
[2020-08-15 10:02] LABS: CALCIUM 8.9 mg/dL (8.3-10.5)
[2020-08-15 10:04] LABS: TOTAL PROTEIN 7.1 g/dL (6.2-8.1)
[2020-08-15 10:05] LABS: TOTAL BILIRUBIN 0.3 mg/dL (0.2-1.2)
[2020-08-15 10:10] LABS: MAGNESIUM 1.74 mg/dL (1.60-2.60)
[2020-08-15 10:22] LABS: LYMPHOCYTE 13 % (20-51); MONOCYTE 5 % (3-10); NEUTROPHILS 82 % (42-75)
== END ==
LOC: LAB 09:30
PROVIDERS: Internal Medicine
DX: E11.9 Type 2 diabetes mellitus without complications (principal)

== ENCOUNTER → 2020-08-22 | Outpatient (CLI) | payer MEDICARE, OTHER ==
[2020-08-04 19:33] VITALS: BP 145/100
[2020-08-22 15:20] LABS: HEMATOCRIT 37.7 % (37.0-47.0); HEMOGLOBIN 11.6 g/dL (12.5-16.0); LYMPH# 1.6 (1.50-4.00); MEAN CELL VOLUME 83 fl (78-100); MEAN CORPUSCULAR HEMOGLOBIN 25 pg (27-31); MEAN CORPUSCULAR HGB CONC 31 g/dL (33-37); MEAN PLATELET VOLUME 11.9 fl (7.4-10.4); MONO # 0.6 (0.20-0.80); NEU # 6.8 (1.40-6.50); PLATELET COUNT 373 K/mm3 (130-400); RED BLOOD COUNT 4.56 M/mm3 (4.10-5.30); RED CELL DISTRIBUTION WIDTH 12.9 % (11.5-14.5)
[2020-08-22 15:32] LABS: ALBUMIN 3.7 g/dL (3.4-4.8)
[2020-08-22 15:33] LABS: POTASSIUM 4.6 mmol/L (3.5-5.1)
[2020-08-22 15:34] LABS: CALCIUM 8.8 mg/dL (8.3-10.5)
[2020-08-22 15:35] LABS: TOTAL PROTEIN 7.5 g/dL (6.2-8.1)
[2020-08-22 15:37] LABS: TOTAL BILIRUBIN 0.2 mg/dL (0.2-1.2)
[2020-08-22 15:50] LABS: MAGNESIUM 1.81 mg/dL (1.60-2.60)
== END ==
LOC: LAB 15:12
PROVIDERS: Internal Medicine
DX: E11.9 Type 2 diabetes mellitus without complications (principal)

== ENCOUNTER → 2020-08-29 | Outpatient (CLI) | payer MEDICARE, OTHER ==
[2020-08-04 19:33] VITALS: BP 145/100
[2020-08-29 16:46] LABS: URINE APPEARANCE CLEAR; URINE COLOR YELLOW; URINE PROTEIN(semi-quant) 1+ mg/dL (NEGATIVE)
[2020-08-29 16:47] LABS: URINE BILIRUBIN NEGATIVE (NEGATIVE); URINE BLOOD TRACE (NEGATIVE); URINE GLUCOSE 50 mg/dL mg/dL (NEGATIVE); URINE KETONE NEGATIVE (NEGATIVE); URINE LEUKOCYTE ESTERASE NEGATIVE (NEGATIVE); URINE MUCUS PRESENT (NOT PRESENT); URINE NITRATE NEGATIVE (NEGATIVE); URINE UROBILINOGEN NORMAL (NORMAL)
== END ==
LOC: LAB 16:33
PROVIDERS: Internal Medicine
DX: N30.01 Acute cystitis with hematuria (principal)

== ENCOUNTER → 2020-10-21 | Outpatient (CLI) | payer MEDICARE, OTHER ==
[2020-10-21 12:54] LABS: POTASSIUM 4.4 mmol/L (3.5-5.1)
[2020-10-21 12:55] LABS: CALCIUM 9.1 mg/dL (8.3-10.5)
[2020-10-21 13:02] LABS: MAGNESIUM 1.7 mg/dL (1.60-2.60)
== END ==
LOC: LAB 12:30
PROVIDERS: Family Medicine
DX: I50.9 Heart failure, unspecified (principal)

== ENCOUNTER → 2020-10-28 | Outpatient (CLI) | payer MEDICARE, OTHER ==
[2020-10-28 13:37] LABS: POTASSIUM 4.4 mmol/L (3.5-5.1)
[2020-10-28 13:38] LABS: CALCIUM 8.6 mg/dL (8.3-10.5)
== END ==
LOC: LAB 13:20
PROVIDERS: Family Medicine
DX: I11.0 Hypertensive heart disease with heart failure (principal); I50.32 Chronic diastolic (congestive) heart failure

== ENCOUNTER → 2020-11-25 | Outpatient (CLI) | payer MEDICARE, OTHER | LOC: RAD 12:24 | DX: R06.00 Dyspnea, unspecified (principal); Z96.89 Presence of other specified functional implants ==

== ENCOUNTER → 2020-11-28 | Outpatient (CLI) | payer MEDICARE, OTHER ==
[2020-11-28 12:45] LABS: HEMATOCRIT 37.4 % (37.0-47.0); HEMOGLOBIN 11.5 g/dL (12.5-16.0); LYMPH# 1.8 (1.50-4.00); MEAN CELL VOLUME 84 fl (78-100); MEAN CORPUSCULAR HEMOGLOBIN 26 pg (27-31); MEAN CORPUSCULAR HGB CONC 31 g/dL (33-37); MEAN PLATELET VOLUME 11.3 fl (7.4-10.4); MONO # 0.7 (0.20-0.80); NEU # 6.4 (1.40-6.50); PLATELET COUNT 313 K/mm3 (130-400); RED BLOOD COUNT 4.43 M/mm3 (4.10-5.30); RED CELL DISTRIBUTION WIDTH 13.4 % (11.5-14.5); WHITE BLOOD COUNT 8.9 K/mm3 (4.8-10.8)
[2020-11-28 12:56] LABS: ALBUMIN 3.9 g/dL (3.4-4.8); POTASSIUM 4.1 mmol/L (3.5-5.1)
[2020-11-28 12:58] LABS: CALCIUM 9.2 mg/dL (8.3-10.5)
[2020-11-28 12:59] LABS: TOTAL PROTEIN 7.7 g/dL (6.2-8.1)
[2020-11-28 13:01] LABS: TOTAL BILIRUBIN 0.3 mg/dL (0.2-1.2)
[2020-11-28 13:05] LABS: MAGNESIUM 1.96 mg/dL (1.60-2.60)
== END ==
LOC: LAB 12:22
PROVIDERS: Psychiatry & Neurology Neurology
DX: E11.9 Type 2 diabetes mellitus without complications (principal); I16.0 Hypertensive urgency; K90.9 Intestinal malabsorption, unspecified

== ENCOUNTER → 2020-12-29 | Outpatient (CLI) | payer MEDICARE, OTHER ==
[2020-12-29 08:13] LABS: HEMATOCRIT 35.1 % (37.0-47.0); HEMOGLOBIN 10.8 g/dL (12.5-16.0); LYMPH# 1.7 (1.50-4.00); MEAN CELL VOLUME 85 fl (78-100); MEAN CORPUSCULAR HEMOGLOBIN 26 pg (27-31); MEAN CORPUSCULAR HGB CONC 31 g/dL (33-37); MEAN PLATELET VOLUME 11.8 fl (7.4-10.4); MONO # 0.6 (0.20-0.80); NEU # 6.5 (1.40-6.50); PLATELET COUNT 302 K/mm3 (130-400); RED BLOOD COUNT 4.12 M/mm3 (4.10-5.30); RED CELL DISTRIBUTION WIDTH 12.5 % (11.5-14.5); WHITE BLOOD COUNT 8.8 K/mm3 (4.8-10.8)
[2020-12-29 08:34] LABS: ALBUMIN 3.6 g/dL (3.4-4.8); POTASSIUM 4.2 mmol/L (3.5-5.1)
[2020-12-29 08:36] LABS: CALCIUM 8.9 mg/dL (8.3-10.5)
[2020-12-29 08:37] LABS: TOTAL PROTEIN 7.1 g/dL (6.2-8.1)
[2020-12-29 08:39] LABS: TOTAL BILIRUBIN 0.3 mg/dL (0.2-1.2)
== END ==
LOC: LAB 07:51
PROVIDERS: Internal Medicine
DX: R06.00 Dyspnea, unspecified (principal)

== ENCOUNTER → 2021-01-15 | Outpatient (CLI) | payer MEDICARE, OTHER | LOC: LAB 13:31 | DX: E03.4 Atrophy of thyroid (acquired) (principal) ==

== ENCOUNTER → 2021-01-26 | Outpatient (CLI) | payer MEDICARE, OTHER ==
[2021-01-26 12:43] LABS: POTASSIUM 3.9 mmol/L (3.5-5.1)
[2021-01-26 12:44] LABS: CALCIUM 8.6 mg/dL (8.3-10.5)
== END ==
LOC: LAB 12:14
PROVIDERS: Internal Medicine
DX: I10 Essential (primary) hypertension (principal)

== ENCOUNTER → 2021-02-19 | Outpatient (CLI) | payer MEDICARE, OTHER ==
[2021-02-19 12:19] LABS: POTASSIUM 4.2 mmol/L (3.5-5.1)
[2021-02-19 12:20] LABS: CALCIUM 8.4 mg/dL (8.3-10.5)
[2021-02-19 12:26] LABS: MAGNESIUM 1.88 mg/dL (1.60-2.60)
== END ==
LOC: LAB 11:49
PROVIDERS: Nurse Practitioner
DX: I16.0 Hypertensive urgency (principal)

== ENCOUNTER → 2021-03-03 | Outpatient (CLI) | payer MEDICARE, OTHER ==
[2021-03-03 17:11] LABS: BASO # 0.01 (0.02-0.10); HEMATOCRIT 31.5 % (37.0-47.0); HEMOGLOBIN 10.3 g/dL (12.5-16.0); LYMPH# 1.45 (1.50-4.00); MEAN CELL VOLUME 78 fl (78-100); MEAN CORPUSCULAR HEMOGLOBIN 26 pg (27-31); MEAN CORPUSCULAR HGB CONC 33 g/dL (33-37); MEAN PLATELET VOLUME 11.1 fl (7.4-10.4); MONO # 0.72 (0.20-0.80); NEU # 7.54 (1.40-6.50); PLATELET COUNT 306 K/mm3 (130-400); RED BLOOD COUNT 4.02 M/mm3 (4.10-5.30); WHITE BLOOD COUNT 9.8 K/mm3 (4.8-10.8)
[2021-03-03 17:19] LABS: ALBUMIN 3.6 g/dL (3.4-4.8); POTASSIUM 4.3 mmol/L (3.5-5.1)
[2021-03-03 17:20] LABS: CALCIUM 8.8 mg/dL (8.3-10.5)
[2021-03-03 17:22] LABS: TOTAL PROTEIN 7.2 g/dL (6.2-8.1)
[2021-03-03 17:24] LABS: TOTAL BILIRUBIN 0.3 mg/dL (0.2-1.2)
[2021-03-03 17:29] LABS: MAGNESIUM 1.97 mg/dL (1.60-2.60)
== END ==
LOC: LAB 15:42
PROVIDERS: Internal Medicine
DX: E03.4 Atrophy of thyroid (acquired) (principal); E78.00 Pure hypercholesterolemia, unspecified; E11.9 Type 2 diabetes mellitus without complications; K90.9 Intestinal malabsorption, unspecified

== ENCOUNTER → 2021-06-15 | Outpatient (CLI) | payer MEDICARE, OTHER ==
[2021-06-15 18:18] LABS: BASO # 0.01 (0.02-0.10); EOS # 0.01 (0.04-0.40); EOS % 0.1 % (1.0-5.0); HEMATOCRIT 32.2 % (37.0-47.0); HEMOGLOBIN 10.4 g/dL (12.5-16.0); LYMPH# 1.61 (1.50-4.00); MEAN CELL VOLUME 83 fl (78-100); MEAN CORPUSCULAR HEMOGLOBIN 27 pg (27-31); MEAN CORPUSCULAR HGB CONC 32 g/dL (33-37); MEAN PLATELET VOLUME 11.2 fl (7.4-10.4); MONO # 0.56 (0.20-0.80); NEU # 7.36 (1.40-6.50); PLATELET COUNT 270 K/mm3 (130-400); RED BLOOD COUNT 3.89 M/mm3 (4.10-5.30); RED CELL DISTRIBUTION WIDTH 15.1 % (11.5-14.5); WHITE BLOOD COUNT 9.6 K/mm3 (4.8-10.8)
[2021-06-15 18:23] LABS: ALBUMIN 3.8 g/dL (3.4-4.8); POTASSIUM 3.9 mmol/L (3.5-5.1)
[2021-06-15 18:24] LABS: CALCIUM 9.6 mg/dL (8.3-10.5)
[2021-06-15 18:25] LABS: TOTAL PROTEIN 7.4 g/dL (6.2-8.1)
[2021-06-15 18:27] LABS: TOTAL BILIRUBIN 0.2 mg/dL (0.2-1.2)
[2021-06-15 18:32] LABS: MAGNESIUM 2.07 mg/dL (1.60-2.60)
== END ==
LOC: LAB 17:45
PROVIDERS: Internal Medicine
DX: E11.9 Type 2 diabetes mellitus without complications (principal); K90.9 Intestinal malabsorption, unspecified; E03.4 Atrophy of thyroid (acquired)

== ENCOUNTER → 2021-09-02 | Outpatient (CLI) | payer MEDICARE, OTHER ==
[2021-09-02 08:36] LABS: CALCIUM 8.9 mg/dL (8.3-10.5)
== END ==
LOC: LAB 08:13
PROVIDERS: Physician Assistant
DX: I50.33 Acute on chronic diastolic (congestive) heart failure (principal)

== ENCOUNTER → 2021-09-14 | Outpatient (CLI) | payer MEDICARE, OTHER ==
[~2021-09-14] MED LIST changes: +BREO ELLIPTA 21 EACH IH; +CARVEDILOL12.5 MG PO; +ESZOPICLONE2 MG PO; +FLUTICASON0.05 MG/AC NS; +FUROSEMIDE40 MG PO; +GOOD NEIGHBOR200 M3 PO; +GOOD SENSE ANTI25 MG PO; +LOSARTAN POTASS25 MG PO; +METOLAZONE5 MG PO; +MORGIDOX 1X100100 MG PO; +NATURAL IRON65 MG PO; +PREDNISONE20 M1 PO; +REGLAN5 M1 PO; +SINGULAIR 110 MG/TAB PO; +TORSEMIDE20 M1 PO; +VITAMIN D250 MCG PO
== END ==
LOC: LAB 11:59
DX: Z20.822 Contact with and (suspected) exposure to COVID-19 (principal)

== ENCOUNTER → 2021-09-25 | Outpatient (CLI) | payer MEDICARE, OTHER ==
[~2021-09-25] MED LIST changes: -BREO ELLIPTA 21 EACH IH; -CARVEDILOL12.5 MG PO; -ESZOPICLONE2 MG PO; -FLUTICASON0.05 MG/AC NS; -FUROSEMIDE40 MG PO; -GOOD NEIGHBOR200 M3 PO; -GOOD SENSE ANTI25 MG PO; -LOSARTAN POTASS25 MG PO; -METOLAZONE5 MG PO; -MORGIDOX 1X100100 MG PO; -NATURAL IRON65 MG PO; -PREDNISONE20 M1 PO; -REGLAN5 M1 PO; -SINGULAIR 110 MG/TAB PO; -TORSEMIDE20 M1 PO; -VITAMIN D250 MCG PO
[2021-09-25 09:19] LABS: BASO # 0.01 K/mm3 (0.02-0.10); HEMATOCRIT 34.3 % (37.0-47.0); HEMOGLOBIN 10.5 g/dL (12.5-16.0); LYMPH# 1.47 K/mm3 (1.50-4.00); MEAN CELL VOLUME 88 fl (78-100); MEAN CORPUSCULAR HEMOGLOBIN 27 pg (27-31); MEAN CORPUSCULAR HGB CONC 31 g/dL (33-37); MEAN PLATELET VOLUME 11.4 fl (7.4-10.4); MONO # 0.39 K/mm3 (0.20-0.80); NEU # 6.47 K/mm3 (1.40-6.50); PLATELET COUNT 282 K/mm3 (130-400); RED BLOOD COUNT 3.91 M/mm3 (4.10-5.30); RED CELL DISTRIBUTION WIDTH 12.8 % (11.5-14.5); WHITE BLOOD COUNT 8.4 K/mm3 (4.8-10.8)
[2021-09-25 09:25] LABS: ALBUMIN 3.5 g/dL (3.4-4.8)
[2021-09-25 09:26] LABS: POTASSIUM 3.5 mmol/L (3.5-5.1)
[2021-09-25 09:27] LABS: CALCIUM 8.6 mg/dL (8.3-10.5)
[2021-09-25 09:30] LABS: TOTAL BILIRUBIN 0.2 mg/dL (0.2-1.2)
[2021-09-25 09:35] LABS: MAGNESIUM 1.88 mg/dL (1.60-2.60)
== END ==
LOC: LAB 08:56
PROVIDERS: Internal Medicine
DX: E11.9 Type 2 diabetes mellitus without complications (principal); K90.9 Intestinal malabsorption, unspecified; E03.4 Atrophy of thyroid (acquired)

== ENCOUNTER → 2021-10-08 | Outpatient (CLI) | payer MEDICARE, OTHER | LOC: LAB 16:50 | DX: Z20.822 Contact with and (suspected) exposure to COVID-19 (principal) ==

== ENCOUNTER 2021-10-16 14:35 | Emergency (ER) | payer MEDICARE, OTHER ==
[~2021-10-16] VITALS: Wt 109.4 kg
[2021-10-16 15:53] LABS: BASO # 0.01 K/mm3 (0.02-0.10); HEMOGLOBIN 10.5 g/dL (12.5-16.0); MEAN CELL VOLUME 87 fl (78-100); MEAN CORPUSCULAR HEMOGLOBIN 27 pg (27-31); MEAN CORPUSCULAR HGB CONC 31 g/dL (33-37); MEAN PLATELET VOLUME 11.1 fl (7.4-10.4); MONO # 0.64 K/mm3 (0.20-0.80); NEU # 4.94 K/mm3 (1.40-6.50); PLATELET COUNT 251 K/mm3 (130-400); RED BLOOD COUNT 3.89 M/mm3 (4.10-5.30); RED CELL DISTRIBUTION WIDTH 13.1 % (11.5-14.5); WHITE BLOOD COUNT 6.8 K/mm3 (4.8-10.8)
[2021-10-16 16:04] LABS: ALBUMIN 3.6 g/dL (3.4-4.8); POTASSIUM 4.4 mmol/L (3.5-5.1); SODIUM 136 mmol/L (136-145)
[2021-10-16 16:05] LABS: CALCIUM 8.1 mg/dL (8.3-10.5)
[2021-10-16 16:06] LABS: GLUCOSE 96 mg/dL (65-105)
[2021-10-16 16:07] LABS: CARBON DIOXIDE 26 mmol/L (23-31)
[2021-10-16 16:08] LABS: TOTAL BILIRUBIN 0.2 mg/dL (0.2-1.2)
[2021-10-16 16:12] LABS: AST-SGOT 20 U/L (5-34)
[2021-10-16 16:13] LABS: ALT/SGPT 23 U/L (0-55)
[2021-10-16 16:20] LABS: TROPONIN-I < 0.030 ng/mL (<0.030)
[2021-10-16 19:05] VITALS: BP 146/58
== END 2021-10-16 19:05 | disposition home or self-care (01) ==
LOC: ED 14:35
PROVIDERS: Nurse Practitioner
DX: U07.1 COVID-19 (principal); E11.22 Type 2 diabetes mellitus with diabetic chronic kidney disease; I12.9 Hypertensive chronic kidney disease with stage 1 through stage 4 chronic kidney disease, or unspecified chronic kidney disease; N18.9 Chronic kidney disease, unspecified; J44.9 Chronic obstructive pulmonary disease, unspecified; E78.00 Pure hypercholesterolemia, unspecified; E11.42 Type 2 diabetes mellitus with diabetic polyneuropathy; Z79.4 Long term (current) use of insulin; Z79.899 Other long term (current) drug therapy
CPT/HCPCS: J7030

== ENCOUNTER → 2021-12-03 | Outpatient (CLI) | payer MEDICARE, OTHER ==
[~2021-12-03] MED LIST changes: +CARVEDILOL12.5 MG PO; +FUROSEMIDE40 MG PO; +LOSARTAN POTASS25 MG PO; +MORGIDOX 1X100100 MG PO; +REGLAN5 M1 PO
== END ==
LOC: LAB 11:45
DX: E03.4 Atrophy of thyroid (acquired) (principal)

== ENCOUNTER 2021-12-09 11:55 | Emergency (ER) | payer MEDICARE, OTHER ==
[~2021-12-09] VITALS: Ht 154.9 cm; Wt 97.3 kg
[~2021-12-09 11:55] MED LIST changes: -CARVEDILOL12.5 MG PO; -FUROSEMIDE40 MG PO; -LOSARTAN POTASS25 MG PO; -MORGIDOX 1X100100 MG PO; -REGLAN5 M1 PO
[2021-12-09] MEDS ORDERED: CARVEDILOL12.5 MG PO (12:31)
[2021-12-09] MEDS ORDERED: PROZAC20 M1 PO (12:33)
[2021-12-09 12:34] LABS: HEMOGLOBIN 10.8 g/dL (12.5-16.0); LYMPH# 1.92 K/mm3 (1.50-4.00); MEAN CELL VOLUME 89 fl (78-100); MEAN CORPUSCULAR HEMOGLOBIN 28 pg (27-31); MEAN CORPUSCULAR HGB CONC 31 g/dL (33-37); MEAN PLATELET VOLUME 11.1 fl (7.4-10.4); MONO # 0.57 K/mm3 (0.20-0.80); NEU # 6.89 K/mm3 (1.40-6.50); PLATELET COUNT 266 K/mm3 (130-400); RED BLOOD COUNT 3.93 M/mm3 (4.10-5.30); WHITE BLOOD COUNT 9.4 K/mm3 (4.8-10.8)
[2021-12-09] MEDS ORDERED: FUROSEMIDE40 MG PO (12:34)
[2021-12-09] MEDS ORDERED: CRESTOR40 MG PO (12:37)
[2021-12-09] MEDS ORDERED: REGLAN5 M1 PO (12:37)
[2021-12-09] MEDS ORDERED: LOSARTAN POTASS25 MG PO (12:38)
[2021-12-09] MEDS ORDERED: ZESTRIL5 M1 PO (12:39)
[2021-12-09 12:48] LABS: ALBUMIN 3.9 g/dL (3.4-4.8); POTASSIUM 4.4 mmol/L (3.5-5.1); SODIUM 136 mmol/L (136-145)
[2021-12-09 12:49] LABS: CALCIUM 9.3 mg/dL (8.3-10.5)
[2021-12-09 12:51] LABS: GLUCOSE 111 mg/dL (65-105); TOTAL PROTEIN 7.8 g/dL (6.2-8.1)
[2021-12-09 12:52] LABS: CARBON DIOXIDE 26 mmol/L (23-31); TOTAL BILIRUBIN 0.3 mg/dL (0.2-1.2)
[2021-12-09 12:56] LABS: AST-SGOT 16 U/L (5-34)
[2021-12-09 12:58] LABS: ALT/SGPT 15 U/L (0-55)
[2021-12-09 13:07] LABS: TROPONIN-I < 0.030 ng/mL (<0.030)
[2021-12-09 14:00] LABS: URINE APPEARANCE CLEAR; URINE BILIRUBIN NEGATIVE (NEGATIVE); URINE BLOOD NEGATIVE (NEGATIVE); URINE COLOR YELLOW; URINE GLUCOSE NEGATIVE (NEGATIVE); URINE KETONE NEGATIVE (NEGATIVE); URINE LEUKOCYTE ESTERASE NEGATIVE (NEGATIVE); URINE MUCUS PRESENT (NOT PRESENT); URINE NITRATE NEGATIVE (NEGATIVE); URINE PROTEIN(semi-quant) TRACE (NEGATIVE); URINE UROBILINOGEN NORMAL (NORMAL)
[2021-12-09] MEDS ORDERED: IPRATROPIUM BROM3 M1 IH (14:46)
[2021-12-09] MEDS ORDERED: MORGIDOX 1X100100 MG PO (14:46)
[2021-12-09 15:07] VITALS: BP 138/60
== END 2021-12-09 14:53 | disposition home or self-care (01) ==
LOC: ED 11:55
PROVIDERS: Physician Assistant
DX: J40 Bronchitis, not specified as acute or chronic (principal); J44.9 Chronic obstructive pulmonary disease, unspecified; E11.9 Type 2 diabetes mellitus without complications; J32.9 Chronic sinusitis, unspecified; Z86.16 Personal history of COVID-19; Z79.4 Long term (current) use of insulin
CPT/HCPCS: J7030

== ENCOUNTER → 2022-01-12 | Outpatient (CLI) | payer MEDICARE, OTHER ==
[~2022-01-12] MED LIST changes: +CARVEDILOL12.5 MG PO; +FUROSEMIDE40 MG PO; +LOSARTAN POTASS25 MG PO; +MORGIDOX 1X100100 MG PO; +REGLAN5 M1 PO
== END ==
LOC: LAB 11:13
DX: E53.8 Deficiency of other specified B group vitamins (principal); E03.4 Atrophy of thyroid (acquired); E11.9 Type 2 diabetes mellitus without complications; I16.0 Hypertensive urgency; J44.9 Chronic obstructive pulmonary disease, unspecified; F32.1 Major depressive disorder, single episode, moderate; K90.9 Intestinal malabsorption, unspecified; E78.00 Pure hypercholesterolemia, unspecified

== ENCOUNTER → 2022-04-01 | Outpatient (CLI) | payer MEDICARE, OTHER ==
[2022-04-01 16:04] LABS: HEMATOCRIT 36.3 % (37.0-47.0); HEMOGLOBIN 11.2 g/dL (12.5-16.0); LYMPH# 1.56 K/mm3 (1.50-4.00); MEAN CELL VOLUME 88 fl (78-100); MEAN CORPUSCULAR HEMOGLOBIN 27 pg (27-31); MEAN CORPUSCULAR HGB CONC 31 g/dL (33-37); MEAN PLATELET VOLUME 10.7 fl (7.4-10.4); MONO # 0.58 K/mm3 (0.20-0.80); NEU # 6.52 K/mm3 (1.40-6.50); PLATELET COUNT 293 K/mm3 (130-400); RED BLOOD COUNT 4.12 M/mm3 (4.10-5.30); RED CELL DISTRIBUTION WIDTH 12.7 % (11.5-14.5); WHITE BLOOD COUNT 8.7 K/mm3 (4.8-10.8)
[2022-04-01 16:14] LABS: ALBUMIN 3.9 g/dL (3.4-4.8); POTASSIUM 4.3 mmol/L (3.5-5.1)
[2022-04-01 16:15] LABS: CALCIUM 8.9 mg/dL (8.3-10.5)
[2022-04-01 16:16] LABS: TOTAL PROTEIN 8.1 g/dL (6.2-8.1)
[2022-04-01 16:18] LABS: TOTAL BILIRUBIN 0.3 mg/dL (0.2-1.2)
[2022-04-01 16:23] LABS: MAGNESIUM 2.17 mg/dL (1.60-2.60)
== END ==
LOC: LAB 15:50
PROVIDERS: Internal Medicine
DX: E11.9 Type 2 diabetes mellitus without complications (principal); E78.00 Pure hypercholesterolemia, unspecified; K90.9 Intestinal malabsorption, unspecified; E03.4 Atrophy of thyroid (acquired); I16.0 Hypertensive urgency; G47.33 Obstructive sleep apnea (adult) (pediatric); E53.8 Deficiency of other specified B group vitamins; J44.9 Chronic obstructive pulmonary disease, unspecified; F32.1 Major depressive disorder, single episode, moderate

== ENCOUNTER → 2022-04-22 | Outpatient (CLI) | payer MEDICARE, OTHER ==
[2022-04-22 14:40] LABS: HEMATOCRIT 35.8 % (37.0-47.0); HEMOGLOBIN 10.9 g/dL (12.5-16.0); LYMPH# 1.37 K/mm3 (1.50-4.00); MEAN CELL VOLUME 90 fl (78-100); MEAN CORPUSCULAR HEMOGLOBIN 27 pg (27-31); MEAN CORPUSCULAR HGB CONC 30 g/dL (33-37); MEAN PLATELET VOLUME 10.8 fl (7.4-10.4); MONO # 0.52 K/mm3 (0.20-0.80); NEU # 5.31 K/mm3 (1.40-6.50); PLATELET COUNT 287 K/mm3 (130-400); RED BLOOD COUNT 3.98 M/mm3 (4.10-5.30); RED CELL DISTRIBUTION WIDTH 12.8 % (11.5-14.5); WHITE BLOOD COUNT 7.2 K/mm3 (4.8-10.8)
[2022-04-22 14:53] LABS: ALBUMIN 3.7 g/dL (3.4-4.8); POTASSIUM 4.5 mmol/L (3.5-5.1)
[2022-04-22 14:54] LABS: CALCIUM 8.7 mg/dL (8.3-10.5)
[2022-04-22 14:56] LABS: TOTAL PROTEIN 7.5 g/dL (6.2-8.1)
[2022-04-22 14:58] LABS: TOTAL BILIRUBIN 0.3 mg/dL (0.2-1.2)
[2022-04-22 15:16] LABS: D-DIMER 0.79 mg/L FEU (0.15-0.50)
== END ==
LOC: LAB 14:24
PROVIDERS: Internal Medicine
DX: J44.9 Chronic obstructive pulmonary disease, unspecified (principal); E11.9 Type 2 diabetes mellitus without complications; E53.8 Deficiency of other specified B group vitamins; G47.33 Obstructive sleep apnea (adult) (pediatric); I16.0 Hypertensive urgency; F32.1 Major depressive disorder, single episode, moderate; E03.4 Atrophy of thyroid (acquired); K90.9 Intestinal malabsorption, unspecified; E78.00 Pure hypercholesterolemia, unspecified; R51.9 Headache, unspecified; M21.371 Foot drop, right foot

== ENCOUNTER → 2022-05-07 | Outpatient (CLI) | payer MEDICARE, OTHER | LOC: LAB 14:59 | DX: E11.9 Type 2 diabetes mellitus without complications (principal); G47.33 Obstructive sleep apnea (adult) (pediatric); E53.8 Deficiency of other specified B group vitamins; I16.0 Hypertensive urgency; J44.9 Chronic obstructive pulmonary disease, unspecified; F32.1 Major depressive disorder, single episode, moderate; E03.4 Atrophy of thyroid (acquired); K90.9 Intestinal malabsorption, unspecified; E78.00 Pure hypercholesterolemia, unspecified; M21.371 Foot drop, right foot; R51.9 Headache, unspecified ==